=== PATIENT | male | born 2000 | race African-American/Black ===

== ENCOUNTER 2021-10-10 08:32 | Emergency (ER) | payer SELFPAY ==
[2021-10-10 08:37] VITALS: BP 157/100; PULSE 96; RESP 17; TEMP 36.6; O2SAT 100
--- NOTE | 2021-10-10 10:17 | PC.NURSE ---
[id number] Pt at intake desk states I'm going to try [facility] and see if I can get a test, if not I'll be back.
== END 2021-10-10 09:45 | disposition left against medical advice (07) ==
LOC: ANHED 10:02
DX: R51.9 Headache, unspecified (principal)
CPT/HCPCS: 99199